=== PATIENT | male | born 1990 | race Caucasian/White ===

== ENCOUNTER 2017-09-10 21:02 | Emergency (ER) | payer BC ==
[2017-09-11] MEDS: KETOROLAC 60 MG INJ IM (01:42)
[2017-09-11 02:30] LABS: ADD UMIC NO; UR ASCORBIC ACID 40 mg/dL (NEGATIVE); UR BILIRUBIN (Dip) NEGATIVE (NEGATIVE); UR BLOOD (Dip) NEGATIVE (NEGATIVE); UR CLARITY CLEAR (CLEAR); UR COLOR YELLOW (YELLOW); UR GLUCOSE (Dip) NEGATIVE (NEGATIVE); UR KETONES (Dip) NEGATIVE (NEGATIVE); UR LEUKOCYTE ESTERASE (Dip) NEGATIVE Leu/ul (NEGATIVE); UR NITRITE (Dip) NEGATIVE (NEGATIVE); UR SPECIFIC GRAVITY (Dip) 1.025 (1.003-1.030); UR TOTAL PROTEIN (Dip) NEGATIVE (NEGATIVE); UR UROBILINOGEN (Dip) NEGATIVE (NEGATIVE)
[2017-09-11] MEDS: AZITHROMYCIN 250 MG TAB PO (04:14)
[2017-09-11] MEDS: CEFTRIAXONE 250 MG INJ IM (04:16)
== END 2017-09-11 14:49 | disposition home or self-care (01) ==
LOC: FTE 21:02
DX: N45.2 Orchitis (principal)
CPT/HCPCS: 76870; 81003; 87591; 96374; 96375; 99285-25

== ENCOUNTER 2017-10-09 11:55 | Emergency (ER) | payer BC ==
[2017-10-09 15:34] LABS: ADD UMIC NO; UR ASCORBIC ACID NEGATIVE (NEGATIVE); UR BILIRUBIN (Dip) NEGATIVE (NEGATIVE); UR BLOOD (Dip) NEGATIVE (NEGATIVE); UR CLARITY CLEAR (CLEAR); UR COLOR YELLOW (YELLOW); UR GLUCOSE (Dip) NEGATIVE (NEGATIVE); UR KETONES (Dip) NEGATIVE (NEGATIVE); UR LEUKOCYTE ESTERASE (Dip) NEGATIVE Leu/ul (NEGATIVE); UR NITRITE (Dip) NEGATIVE (NEGATIVE); UR SPECIFIC GRAVITY (Dip) 1.009 (1.003-1.030); UR TOTAL PROTEIN (Dip) NEGATIVE (NEGATIVE); UR UROBILINOGEN (Dip) NEGATIVE (NEGATIVE)
== END 2017-10-09 17:30 | disposition home or self-care (01) ==
LOC: FTE 11:55
DX: N50.89 Other specified disorders of the male genital organs (principal)
CPT/HCPCS: 76870; 81003; 87086; 99284-25

== ENCOUNTER 2017-10-22 22:33 | Inpatient (IN) | payer BC ==
[2017-10-22] MEDS ORDERED: HYDROCODONE/APAP (5/325) TAB PO (23:30)
[2017-10-23] MEDS: SOD CHLORIDE 0.9% 1,000 ML IV (01:30)
[2017-10-23] MEDS: HYDROCODONE/APAP (10/325) TAB PO ×4 (01:31→23:26)
[2017-10-23] MEDS: IBUPROFEN 600 MG TAB PO ×2 (01:31→19:38)
[2017-10-23] MEDS: ONDANSETRON 4 MG INJ IV ×2 (01:31→19:38)
[2017-10-23 05:34] LABS: ADD MAN DIFF? NO
[2017-10-23 05:40] LABS: BASOPHIL # 0.1 10^3/ul (0.0-0.1); BASOPHILS % 0.7 % (0.0-2.0); EOSINOPHILS # 0.3 10^3/ul (0.0-0.5); EOSINOPHILS % 3.3 % (0.0-7.0); HEMATOCRIT 44.9 % (42.0-52.0); HEMOGLOBIN 15.6 g/dl (14.0-18.0); LYMPHOCYTES # 2.4 10^3/ul (0.8-2.9); MEAN CORPUSCULAR HEMOGLOBIN 30.4 pg (29.0-33.0); MEAN CORPUSCULAR HGB CONC 34.7 g/dl (32.0-37.0); MEAN CORPUSCULAR VOLUME 87.4 fl (82.0-101.0); MEAN PLATELET VOLUME 9.9 fl (7.4-10.4); MONOCYTE # 0.8 10^3/ul (0.3-0.9); MONOCYTES % 9.4 % (0.0-11.0); NEUTROPHIL # 4.6 10^3/ul (1.6-7.5); PLATELET COUNT 229 10^3/UL (140-415); RED BLOOD COUNT 5.14 10^6/ul (4.70-6.10)
[2017-10-23 05:40] LABS: WHITE BLOOD COUNT 8.1 10^3/ul (4.8-10.8)
[2017-10-23 05:54] LABS: ALANINE AMINOTRANSFERASE 41 IU/L (13-69); ALBUMIN/GLOBULIN RATIO 1.48; ALKALINE PHOSPHATASE 96 IU/L (42-121); ANION GAP 15 (8-16); ASPARTATE AMINO TRANSFERASE 26 IU/L (15-46); BILIRUBIN,INDIRECT 0.7 mg/dl (0-1.1); BILIRUBIN,TOTAL 0.7 mg/dl (0.2-1.3); BLOOD UREA NITROGEN 11 mg/dl (7-20); CALCIUM 8.7 mg/dl (8.4-10.2); CARBON DIOXIDE 28 mmol/L (21-31); CHLORIDE 103 mmol/L (97-110); CREATININE 0.86 mg/dl (0.61-1.24); GLUCOSE 93 mg/dl (70-220); POTASSIUM 3.8 mmol/L (3.5-5.1); SODIUM 142 mmol/L (135-144); TOTAL PROTEIN 6.7 g/dl (6.1-8.1)
[2017-10-23] MEDS: CEFTRIAXONE 1 GM/NS 50 ML IVPB (08:29)
[2017-10-23] MEDS: TOBRAMYCIN 0.3% 5 ML OPH LEFT EYE ×4 (08:29→21:00)
[2017-10-23] MEDS: DEXAMETHASONE 0.1% 5 ML OPH LEFT EYE ×4 (08:30→21:00)
[2017-10-23] MEDS ORDERED: CEFTRIAXONE 1 GM INJ IVPB (09:00)
[2017-10-23 10:52] LABS: INR 0.94; PROTIME 12.7 Sec (11.9-14.9)
[2017-10-23] MEDS ORDERED: IOHEXOL 300MG/ML 150 ML BTL (11:08)
[2017-10-23] MEDS ORDERED: SOD CHLORIDE 0.9% 100 ML (11:08)
[2017-10-23 14:11] LABS: ALPHA FETOPROTEIN 4.14 IU/L (0.00-7.21)
[2017-10-23 16:58] LABS: ADD UMIC NO; UR ASCORBIC ACID NEGATIVE (NEGATIVE); UR BILIRUBIN (Dip) NEGATIVE (NEGATIVE); UR BLOOD (Dip) NEGATIVE (NEGATIVE); UR CLARITY CLEAR (CLEAR); UR COLOR STRAW (YELLOW); UR GLUCOSE (Dip) NEGATIVE (NEGATIVE); UR KETONES (Dip) NEGATIVE (NEGATIVE); UR LEUKOCYTE ESTERASE (Dip) NEGATIVE Leu/ul (NEGATIVE); UR NITRITE (Dip) NEGATIVE (NEGATIVE); UR SPECIFIC GRAVITY (Dip) 1.005 (1.003-1.030); UR TOTAL PROTEIN (Dip) NEGATIVE (NEGATIVE); UR UROBILINOGEN (Dip) NEGATIVE (NEGATIVE)
[2017-10-23 17:31] LABS: LACTATE DEHYDROGENASE 795 IU/L (313-618)
[2017-10-24] MEDS: IBUPROFEN 600 MG TAB PO (08:09)
[2017-10-24] MEDS: TOBRAMYCIN 0.3% 5 ML OPH LEFT EYE ×4 (08:09→20:36)
[2017-10-24] MEDS: CEFTRIAXONE 1 GM/NS 50 ML IVPB (08:09)
[2017-10-24] MEDS: DEXAMETHASONE 0.1% 5 ML OPH LEFT EYE ×4 (08:09→20:35)
[2017-10-24] MEDS ORDERED: BUPIVACAINE 0.25% (MPF) 30 ML INJ (17:18)
[2017-10-24] MEDS ORDERED: FENTAnyl 50 MCG/ML VIAL ×2 (17:41)
[2017-10-24] MEDS ORDERED: MIDAZOLAM 1 MG/ML 2 ML INJ (17:41)
[2017-10-24] MEDS: STERILE WATER 1L IRRIG BTL IRR (18:14)
[2017-10-24] MEDS: BUPIVACAINE 0.25% (MPF) 30 ML INJ INJ (18:14)
[2017-10-24] MEDS ORDERED: PROPOFOL 20 ML (18:52)
[2017-10-24] MEDS ORDERED: LIDOCAINE 2% (SDV) 5 ML INJ (18:52)
[2017-10-24] MEDS ORDERED: CEFAZOLIN 1 GM INJ (18:52)
[2017-10-24] MEDS ORDERED: ONDANSETRON 4 MG INJ (18:52)
[2017-10-24] MEDS ORDERED: FENTAnyl 50 MCG/ML VIAL IV (19:30)
[2017-10-24] MEDS ORDERED: METOCLOPRAMIDE 10 MG INJ IV (19:30)
[2017-10-24] MEDS ORDERED: HYDROmorphONE (0.2 MG/ML) 10ML SYG IV (19:30)
[2017-10-24] MEDS ORDERED: DIPHENHYDRAMINE 50 MG INJ IV (19:30)
[2017-10-24] MEDS: ONDANSETRON 4 MG INJ IV (19:38)
[2017-10-24] MEDS: MEPERIDINE 25 MG INJ IV (19:39)
[2017-10-24] MEDS: HYDROmorphONE (0.2 MG/ML) 10ML SYG IV (19:39)
[2017-10-24] MEDS: HYDROCODONE/APAP (10/325) TAB PO (20:35)
[2017-10-25] MEDS: IBUPROFEN 600 MG TAB PO ×4 (00:15→20:19)
[2017-10-25] MEDS: TOBRAMYCIN 0.3% 5 ML OPH LEFT EYE ×4 (09:32→20:20)
[2017-10-25] MEDS: DEXAMETHASONE 0.1% 5 ML OPH LEFT EYE ×4 (09:32→20:19)
[2017-10-25] MEDS: CEFTRIAXONE 1 GM/NS 50 ML IVPB (09:32)
[2017-10-25] MEDS: ACETAMINOPHEN 500 MG TAB PO (11:13)
[2017-10-26] MEDS: IBUPROFEN 600 MG TAB PO ×2 (08:27→15:33)
[2017-10-26] MEDS: DEXAMETHASONE 0.1% 5 ML OPH LEFT EYE ×3 (08:28→17:00)
[2017-10-26] MEDS: TOBRAMYCIN 0.3% 5 ML OPH LEFT EYE ×3 (08:28→17:00)
[2017-10-26] MEDS: CEFTRIAXONE 1 GM/NS 50 ML IVPB (08:28)
== END 2017-10-26 17:30 | disposition home or self-care (01) | DRG 711 ==
LOC: MS2 22:33
PROC: 0VTB0ZZ Resection of Left Testis, Open Approach (ICD-10-PCS; principal; 2017-10-24 17:30)
PROC: 0VTK0ZZ Resection of Left Epididymis, Open Approach (ICD-10-PCS; 2017-10-24 17:30)
DX: C62.12 Malignant neoplasm of descended left testis (principal); C79.9 Secondary malignant neoplasm of unspecified site; F41.9 Anxiety disorder, unspecified
CPT/HCPCS: 71045; 80053; 81003; 82105; 83615; 84702; 85025; 85610; 85730; 88309

== ENCOUNTER 2017-11-25 16:43 | Emergency (ER) | payer BC ==
[2017-11-25] MEDS: ONDANSETRON 4 MG INJ IV (17:39)
[2017-11-25] MEDS: HYDROmorphONE 0.5 MG/0.5 ML SYG IV (17:39)
[2017-11-25 17:40] LABS: ADD MAN DIFF? NO
[2017-11-25 17:42] LABS: WHITE BLOOD COUNT 5.9 10^3/ul (4.8-10.8)
[2017-11-25 17:42] LABS: BASOPHIL # 0.1 10^3/ul (0.0-0.1); BASOPHILS % 0.9 % (0.0-2.0); EOSINOPHILS # 0.4 10^3/ul (0.0-0.5); EOSINOPHILS % 6.7 % (0.0-7.0); HEMOGLOBIN 15.2 g/dl (14.0-18.0); LYMPHOCYTES # 2.3 10^3/ul (0.8-2.9); LYMPHOCYTES % 39.4 % (15.0-51.0); MEAN CORPUSCULAR HEMOGLOBIN 30.2 pg (29.0-33.0); MEAN CORPUSCULAR HGB CONC 35.3 g/dl (32.0-37.0); MEAN CORPUSCULAR VOLUME 85.5 fl (82.0-101.0); MEAN PLATELET VOLUME 9.9 fl (7.4-10.4); MONOCYTE # 0.6 10^3/ul (0.3-0.9); MONOCYTES % 9.4 % (0.0-11.0); NEUTROPHIL # 2.5 10^3/ul (1.6-7.5); NEUTROPHILS % 43.1 % (39.0-77.0); PLATELET COUNT 217 10^3/UL (140-415); RED BLOOD COUNT 5.03 10^6/ul (4.70-6.10); RED CELL DISTRIBUTION WIDTH 11.6 % (11.5-14.5)
[2017-11-25 18:04] LABS: ALANINE AMINOTRANSFERASE 71 IU/L (13-69); ALBUMIN 4.6 g/dl (3.3-4.9); ALBUMIN/GLOBULIN RATIO 1.39; ALKALINE PHOSPHATASE 120 IU/L (42-121); ANION GAP 16 (8-16); ASPARTATE AMINO TRANSFERASE 47 IU/L (15-46); BLOOD UREA NITROGEN 10 mg/dl (7-20); CALCIUM 9.1 mg/dl (8.4-10.2); CARBON DIOXIDE 28 mmol/L (21-31); CHLORIDE 103 mmol/L (97-110); CREATININE 0.88 mg/dl (0.61-1.24); GLUCOSE 90 mg/dl (70-220); POTASSIUM 4.1 mmol/L (3.5-5.1); SODIUM 143 mmol/L (135-144); TOTAL PROTEIN 7.9 g/dl (6.1-8.1)
[2017-11-25] MEDS: IOHEXOL 300MG/ML 150 ML BTL (19:03)
[2017-11-25] MEDS: SOD CHLORIDE 0.9% 100 ML (19:03)
== END 2017-11-25 20:11 | disposition home or self-care (01) ==
LOC: FTE 16:43
DX: R10.32 Left lower quadrant pain (principal); Z85.47 Personal history of malignant neoplasm of testis
CPT/HCPCS: 36415; 80053; 85025; 96374; 96375; 99284-25

== ENCOUNTER 2017-12-09 00:07 | Emergency (ER) | payer BC ==
[2017-12-09] MEDS: DIPHENHYDRAMINE 50 MG INJ IV (00:38)
[2017-12-09] MEDS: METOCLOPRAMIDE 10 MG INJ IV (00:38)
[2017-12-09] MEDS: morphine 4 MG/ML VIAL IV (00:39)
[2017-12-09] MEDS: SOD CHLORIDE 0.9% 1,000 ML IV (00:40)
[2017-12-09 01:13] LABS: ADD MAN DIFF? NO
[2017-12-09 01:14] LABS: WHITE BLOOD COUNT 7.3 10^3/ul (4.8-10.8)
[2017-12-09 01:14] LABS: BASOPHILS % 0.5 % (0.0-2.0); EOSINOPHILS % 0.4 % (0.0-7.0); HEMATOCRIT 44.8 % (42.0-52.0); HEMOGLOBIN 16.5 g/dl (14.0-18.0); LYMPHOCYTES # 1.6 10^3/ul (0.8-2.9); MEAN CORPUSCULAR HEMOGLOBIN 29.9 pg (29.0-33.0); MEAN CORPUSCULAR HGB CONC 36.8 g/dl (32.0-37.0); MEAN CORPUSCULAR VOLUME 81.2 fl (82.0-101.0); MEAN PLATELET VOLUME 10.5 fl (7.4-10.4); MONOCYTE # 0.1 10^3/ul (0.3-0.9); NEUTROPHIL # 5.4 10^3/ul (1.6-7.5); NEUTROPHILS % 74.5 % (39.0-77.0); PLATELET COUNT 254 10^3/UL (140-415); POSITIVE DIFF @See below; RED BLOOD COUNT 5.52 10^6/ul (4.70-6.10); RED CELL DISTRIBUTION WIDTH 11.3 % (11.5-14.5)
[2017-12-09 01:39] LABS: ALANINE AMINOTRANSFERASE 93 IU/L (13-69); ALBUMIN 4.7 g/dl (3.3-4.9); ALBUMIN/GLOBULIN RATIO 1.34; ALKALINE PHOSPHATASE 129 IU/L (42-121); ANION GAP 22 (8-16); ASPARTATE AMINO TRANSFERASE 38 IU/L (15-46); BILIRUBIN,INDIRECT 1.8 mg/dl (0-1.1); BILIRUBIN,TOTAL 1.8 mg/dl (0.2-1.3); BLOOD UREA NITROGEN 20 mg/dl (7-20); CALCIUM 10.4 mg/dl (8.4-10.2); CARBON DIOXIDE 25 mmol/L (21-31); CHLORIDE 95 mmol/L (97-110); GLUCOSE 120 mg/dl (70-220); LIPASE 41 U/L (23-300); POTASSIUM 3.4 mmol/L (3.5-5.1); SODIUM 139 mmol/L (135-144); TOTAL PROTEIN 8.2 g/dl (6.1-8.1)
[2017-12-09 01:40] LABS: ADD UMIC YES; UR AMORPHOUS CRYSTAL FEW /HPF (NONE SEEN); UR ASCORBIC ACID NEGATIVE (NEGATIVE); UR BILIRUBIN (Dip) NEGATIVE (NEGATIVE); UR BLOOD (Dip) NEGATIVE (NEGATIVE); UR CLARITY CLOUDY (CLEAR); UR COLOR YELLOW (YELLOW); UR GLUCOSE (Dip) 1+ mg/dL (NEGATIVE); UR KETONES (Dip) TRACE mg/dL (NEGATIVE); UR LEUKOCYTE ESTERASE (Dip) NEGATIVE Leu/ul (NEGATIVE); UR NITRITE (Dip) NEGATIVE (NEGATIVE); UR RBC 1 /HPF (0-5); UR SPECIFIC GRAVITY (Dip) 1.014 (1.003-1.030); UR TOTAL PROTEIN (Dip) 1+ mg/dl (NEGATIVE); UR UROBILINOGEN (Dip) NEGATIVE (NEGATIVE); UR WBC 3 /HPF (0-5)
== END 2017-12-09 04:32 | disposition home or self-care (01) ==
LOC: E/R 00:07
DX: E87.6 Hypokalemia (principal); R74.0 Nonspecific elevation of levels of transaminase and lactic acid dehydrogenase [LDH]; R17 Unspecified jaundice; T45.1X5A Adverse effect of antineoplastic and immunosuppressive drugs, initial encounter; C62.90 Malignant neoplasm of unspecified testis, unspecified whether descended or undescended; R40.2142 Coma scale, eyes open, spontaneous, at arrival to emergency department; R40.2252 Coma scale, best verbal response, oriented, at arrival to emergency department; R40.2362 Coma scale, best motor response, obeys commands, at arrival to emergency department
CPT/HCPCS: 36415; 76705; 80053; 81001; 83690; 85025; 96374; 96375; 99285-25

== ENCOUNTER 2018-11-16 10:06 | Emergency (ER) | payer BC ==
[2018-11-16] MEDS: ACETAMINOPHEN 325 MG TAB PO (12:06)
== END 2018-11-16 13:06 | disposition home or self-care (01) ==
LOC: FTE 10:06
DX: J06.9 Acute upper respiratory infection, unspecified (principal); Z85.47 Personal history of malignant neoplasm of testis
CPT/HCPCS: 87400; 99283

== ENCOUNTER 2019-02-14 09:19 | Emergency (ER) | payer BC ==
[2019-02-14] MEDS: FAMOTIDINE 20 MG TAB PO (10:12)
[2019-02-14] MEDS: predniSONE 20 MG TAB PO (10:12)
== END 2019-02-14 10:56 | disposition home or self-care (01) ==
LOC: FTE 10:56
DX: L53.9 Erythematous condition, unspecified (principal); Z85.47 Personal history of malignant neoplasm of testis
CPT/HCPCS: 99283; J7512

== ENCOUNTER 2019-03-31 06:45 | Day surgery (SDC) | payer BC ==
[2019-03-31] MEDS ORDERED: METOCLOPRAMIDE 10 MG INJ IV (10:00)
[2019-03-31] MEDS ORDERED: FENTAnyl 50 MCG/ML VIAL IV (10:00)
[2019-03-31] MEDS ORDERED: EPHEDrine 25 MG/5 ML SYG IV (10:00)
[2019-03-31] MEDS ORDERED: HYDROmorphONE 1 MG/5 ML IV SYRINGE IV ×2 (10:00)
[2019-03-31] MEDS ORDERED: DIPHENHYDRAMINE 50 MG INJ IV (10:00)
[2019-03-31] MEDS ORDERED: FENTAnyl 50 MCG/ML VIAL (11:02)
[2019-03-31] MEDS ORDERED: MIDAZOLAM 1 MG/ML 2 ML INJ (11:02)
[2019-03-31] MEDS ORDERED: ROCURONIUM 50 MG INJ (11:14)
[2019-03-31] MEDS ORDERED: PROPOFOL 20 ML (11:14)
[2019-03-31] MEDS ORDERED: CEFAZOLIN 1 GM INJ (11:14)
[2019-03-31] MEDS: LIDOCAINE 1%/EPI 30 ML INJ (11:14)
[2019-03-31] MEDS: COCAINE 4% 4 ML TOP (11:14)
[2019-03-31] MEDS ORDERED: METOCLOPRAMIDE 10 MG INJ (11:15)
[2019-03-31] MEDS ORDERED: ONDANSETRON 4 MG INJ (11:15)
[2019-03-31] MEDS ORDERED: DEXAMETHASONE 4 MG/ML 5 ML INJ (11:15)
[2019-03-31] MEDS ORDERED: LABETALOL HCL 20MG INJ (11:18)
[2019-03-31] MEDS: NEOMYC/POLYMYX/BACIT 30 GM OINT (11:51)
[2019-03-31] MEDS ORDERED: GLYCOPYRROLATE 0.4 MG INJ (12:16)
[2019-03-31] MEDS ORDERED: NEOSTIGMINE 3 MG/3 ML SYRINGE (12:16)
[2019-03-31] MEDS: MEPERIDINE 25 MG INJ IV (13:04)
[2019-03-31] MEDS: ONDANSETRON 4 MG INJ IV (13:05)
[2019-03-31] MEDS: FENTAnyl 50 MCG/ML VIAL IV (13:17)
[2019-03-31] MEDS: OXYCODONE/ACETAMINOPHEN (5/325) TAB PO (13:48)
== END 2019-03-31 14:09 | disposition home or self-care (01) ==
LOC: SDS 06:45
DX: J34.2 Deviated nasal septum (principal); J34.3 Hypertrophy of nasal turbinates
CPT/HCPCS: 30140; 88300